=== PATIENT | male | born 1980 | race Caucasian/White ===

== ENCOUNTER 2022-12-02 07:31 | Outpatient (CLI) | payer OTHER, SELFPAY ==
[2022-12-02 13:15] LABS: Albumin* 4.5 g/dL (3.3-5.0)
[2022-12-02 13:16] LABS: Chloride* 107 mmol/L (96-114); Potassium* 4.1 mmol/L (3.6-5.1); Sodium* 142 mmol/L (135-149)
[2022-12-02 13:18] LABS: Alkaline Phosphatase* 59 U/L (40-150); Aspartate Amino Transferase* 24 U/L (12-35); Bilirubin Total* 0.9 mg/dL (0.1-1.5); Blood Urea Nitrogen* 22 mg/dL (5-24); Carbon Dioxide* 29 mmol/L (20-32); Cholesterol* 191 mg/dL (90-199); Creatinine* 0.9 mg/dL (0.5-1.5); Estimated Glomerular Filt Rate 108 ml/min; Total Protein* 7.2 g/dL (6.0-8.3)
[2022-12-02 13:19] LABS: Alanine Aminotransferase* 26 U/L (4-50); Calcium* 9.1 mg/dL (8.4-10.6); Glucose* 100 mg/dL (60-115); HDL Cholesterol* 50 mg/dL (>=40); LDL Cholesterol Calculated 116 mg/dL (<100); Triglycerides* 127 mg/dL (40-149)
== END 2022-12-02 07:32 | disposition home or self-care (01) ==
LOC: FRMREF 07:31
PROVIDERS: Family Medicine; PCP Physician Assistant Medical; Visit Provider Physician Assistant Medical
DX: E78.5 Hyperlipidemia, unspecified (principal)
CPT/HCPCS: 80053; 80061

== ENCOUNTER 2023-10-18 14:40 | Outpatient (CLI) | payer OTHER, SELFPAY | END 2023-10-18 14:41 | disposition home or self-care (01) | LOC: LKVREF 14:40 | PROVIDERS: PCP Physician Assistant Medical; Visit Provider Emergency Medicine | DX: Z01.818 Encounter for other preprocedural examination (principal) | CPT/HCPCS: 80048 ==

== ENCOUNTER 2023-12-28 09:45 | Outpatient (CLI) | payer OTHER, SELFPAY | END 2023-12-28 09:46 | disposition home or self-care (01) | LOC: NFLDREF 12-29 07:34 | PROVIDERS: PCP Physician Assistant Medical; Referring Provider Physician Assistant Medical; Visit Provider Physician Assistant Medical | DX: Z00.00 Encounter for general adult medical examination without abnormal findings (principal); E78.5 Hyperlipidemia, unspecified; K21.9 Gastro-esophageal reflux disease without esophagitis; E78.2 Mixed hyperlipidemia; G47.33 Obstructive sleep apnea (adult) (pediatric); J30.2 Other seasonal allergic rhinitis; J45.20 Mild intermittent asthma, uncomplicated | CPT/HCPCS: 80053; 80061; 84443 ==

== ENCOUNTER 2024-12-05 07:50 | Outpatient (CLI) | payer OTHER, SELFPAY | END 2024-12-05 07:51 | disposition home or self-care (01) | LOC: NFLDREF 12-06 09:31 | PROVIDERS: PCP Physician Assistant Medical; Referring Provider Physician Assistant Medical; Visit Provider Physician Assistant Medical | DX: E78.2 Mixed hyperlipidemia (principal); Z13.29 Encounter for screening for other suspected endocrine disorder | CPT/HCPCS: 80053; 80061; 84443 ==